=== PATIENT | male | born 1940 | race Caucasian/White ===

== ENCOUNTER 2020-01-23 12:26 | Emergency (ER) | payer MEDICARE, OTHER ==
[~2020-01-23] VITALS: Ht 175.3 cm; Wt 99.8 kg
[~2020-01-23 12:26] MED LIST: ADVIL200 M1 PO; ASPIRIN EC81 MG PO; AZELASTINE137 MCG/0. NAS; DILTIAZEM ER360 MG PO; IPRATROPIUM BRO15 ML NAS; LISINOPRIL20 MG PO; LOVASTATIN40 MG PO; OMEPRAZOLE40 MG PO; PERCOCET 7.5-31 EACH PO; PROAIR HFA8.5 GM INH; QVAR7.3 G1 INH
[2020-01-23] MEDS ORDERED: CLARITIN10 M2 PO (16:14)
[2020-01-23] MEDS ORDERED: TAZTIA XT360 MG PO (16:15)
[2020-01-23] MEDS ORDERED: CHOLESTYRAMINE R5 GM MISC (16:15)
[2020-01-23] MEDS ORDERED: MOBIC15 MG PO (16:16)
--- NOTE | 2020-01-23 20:30 | EKG ---
[facility] [address] [facility] [place], [place] [address] Signed Sinus rhythm with premature supraventricular complexes Left anterior fascicular block Left ventricular hypertrophy with QRS widening Abnormal ECG No previous ECGs available Confirmed by LORENE MORRISON DO ([id number]) on 01/23/2020 8:30:45 PM Electronically Signed By: LORENE MORRISON DO 01/23/20 2030 PATIENT NAME: BEKAHSHANKAR Electrocardiogram DATE OF : 38 PHYSICIAN: LORENE MORRISON DO REPORT #: [id number] REPORT IS CONFIDENTIAL AND NOT TO BE RELEASED WITHOUT AUTHORIZATION
== END 2020-01-23 18:58 | disposition home or self-care (01) ==
LOC: ED 12:26
DX: S46.912A Strain of unspecified muscle, fascia and tendon at shoulder and upper arm level, left arm, initial encounter (principal); X58.XXXA Exposure to other specified factors, initial encounter; Z88.1 Allergy status to other antibiotic agents; Z79.899 Other long term (current) drug therapy
CPT/HCPCS: 71045; 80053; 84484; 85025; 85379; 93005; 93010; 99284-25

== ENCOUNTER 2021-09-23 04:14 | Inpatient (IN) | payer OTHER ==
[~2021-09-23] VITALS: Ht 175.3 cm; Wt 87.7 kg
[~2021-09-23 04:14] MED LIST changes: +CHOLESTYRAMINE R5 GM MISC; +CLARITIN10 M2 PO; +MOBIC15 MG PO; +TAZTIA XT360 MG PO
[2021-09-23] MEDS ORDERED: LIPITOR80 MG PO (04:28)
[2021-09-23] MEDS ORDERED: OMEPRAZOLE20 MG PO (04:29)
[2021-09-23] MEDS ORDERED: ARNUITY ELLIPT50 MCG (04:31)
[2021-09-23] MEDS ORDERED: FLUOCINOLONE AC15 G2 TOP (04:33)
[2021-09-23] MEDS ORDERED: TRIAMCINOLONE A15 G1 TOP (04:34)
[2021-09-23] MEDS ORDERED: VAZALORE81 MG PO (05:19)
[2021-09-23] MEDS ORDERED: DILTIAZEM ER300 M1 PO (05:19)
[2021-09-23] MEDS ORDERED: MELOXICAM15 MG PO (05:20)
[2021-09-23] MEDS ORDERED: CLARITIN10 M2 PO (05:21)
--- NOTE | 2021-09-23 07:30 | NUR ---
REPORT RECEIVED FROM NIGHTSHIFT RN, PT CHECKED ON AT THIST TIME, PT ALERT AND ORIENTED LAYING IN BED, IVF INFUSING AT ORDERED RATE. PT REPORTS FEELING "RUMBLING" IN HIS STOMACH BUT REPORTS NO FURTHER NEEDS AT THIS TIME WHEN ASKED AND DENIES NEEDING TO GO TO THE BATHROOM AT THIS TIME. WILL CONTINUE PLAN OF CARE. CALL LIGHT IN REACH, BED IN LOWEST POSITION.
--- NOTE | 2021-09-23 08:11 | NUR ---
THIS RN IN TO ASSESS PT AND TAKE VITALS. PT LAYING IN BED AT THIS TIME ALERT AND ORIENTED X4. PT DENIES HAVING ANY PAIN OR NAUSEA AT THIST [place] BUT STATES HE FEELS "RUMBLING" IN HIS STOMACH. VITALS TAKEN, PT ASSESSED, BOWEL TONES NOTED TO BE HYPERACTIVE, LUNGS CLEAR. PT DENIES NEEDING TO USE THE RESTROOM AT THIS TIME BUT WILL USE THE CALL LIGHT WHEN HE NEEDS TO. PT IVF INFUSING ORDERED. PT REPORTS NO FURTHER NEEDS AT THIS TIME AND IS RESTING IN BED, CALL LIGHT IN REACH, BED IN LOWEST POSITION, WILL CONTINUE PLAN OF CARE.
--- NOTE | 2021-09-23 09:10 | NUR ---
THIS RN IN TO CHECK ON PT. PT LAYING IN BED ALERT AND ORIENTED, AT THE BEDSIDE. QUESTIONS ANSWERED REGARDING PURPOSE OF LABS. PT REPORTS NO FURTHER NEEDS AT THIS TIME WHEN ASKED, CALL LIGHT IN REACH, BED IN LOWEST POSITION, IVF INFUSING ORDERED, PT'S AT THE BEDSIDE, WILL CONTINUE PLAN OF CARE.
--- NOTE | 2021-09-23 09:45 | NUR ---
DR. COPELAND IN TO SEE PT AND UPDATE PT ON THE PLAN OF CARE. BLOOD CONSENT FORM SIGNED FOR ADMINISTRATION OF BLOOD PRODUCTS, 2 UNITS OF PRBC'S ON HOLD PER LAB. PT REPORTS NO FURTHER NEEDS AT THIS TIME, CLEAR LIQUID TRAY ORDERED FOR PT, WILL CONTINUE PLAN OF CARE.
--- NOTE | 2021-09-23 10:22 | NUR ---
THIS RN IN TO BRING PT HIS CLEAR LIQUID TRAY, PT LAYING IN BED AWAKE AND ALERT. PT STATED HE NEEDED TO HAVE A BM, PT ABLE TO GET UP AND WALK TO THE BATHROOM, STANDBYE ASSIST. PT HAD 100ML CRISTIAN RED BLOOD WITH CLOTS PRESENT FOR HIS BM ALONG WITH 150ML OF CLEAR YELLOW URINE. PT ABLE TO GET BACK UP AND WALK TO THE BED. HR NOTED TO INCREASE WHILE BEING ACTIVE TO THE 110'S. PT DENIES LIGHTHEADEDNESS OR DIZZYNESS WHEN ASKED. PT NOW BACK IN BED SITTING UP AND EATING HIS CLEAR LIQUID TRAY, PT UPDATED ON PLAN OF CARE, DR. COPELAND IN TO CHECK ON PT AND UPDATED ON PT'S BM. PT REPORTS NO FURTHER NEEDS AT THIS TIME WHEN ASKED, PT EATING HIS CLEAR LIQUID TRAY, IVF INFUSING ORDERED, CALL LIGHT IN REACH, WILL CONTINUE PLAN OF CARE.
--- NOTE | 2021-09-23 11:03 | NUR ---
THIS RN IN TO ADMINISTER SCHEDULED MEDICATION. PT LAYING IN BED AWAKE AND ALERT, IVF INFUSING ORDERED, PT FINISHED 100% OF HIS CLEAR LIQUID TRAY. VITALS TAKEN AND SCHEDULED MEDICATION ADMINISTERED. PT DENIES HAVING ANY PAIN AT THIS TIME AND DENIES THE NEED TO USE THE BATHROOM AT THIS TIME. SCD'S PLACED ON PT'S LEGS ORDERED. PT REPORTS NO FURTHER NEEDS, WILL CONTINUE PLAN OF CARE. CALL LIGHT IN REACH.
--- NOTE | 2021-09-23 12:17 | NUR ---
THIS RN IN TO ASSESS PT AND TAKE VITALS. PT LAYING IN BED AT THIS TIME ALERT AND ORIENTED. PT REPORTS 3/10 LEFT SHOULDER PAIN WHICH HE STATES IS CHRONIC. LAB IN TO DRAW BLOOD AT THIS TIME. AFTERWARDS PRN TYLENOL WAS ADMINISTERED FOR HIS PAIN. PT REPORTS NO FURTHER NEEDS AT THIS TIME WHEN ASKED, PT RESTING IN BED, IVF INFUSING ORDERED. PT DENIES ANY LIGHTHEADEDNESS AT THIS TIME AND DENIES THE NEED TO USE THE BATHROOM, WILL CONTINUE PLAN OF CARE. CALL LIGHT IN REACH.
--- NOTE | 2021-09-23 12:38 | NUR ---
RESPONDED TO PT CALL LIGHT, PT LAYING IN BED AWAKE AND ALERT, PT STATED HE NEEDED TO HAVE A BM. BEDSIDE COMMODE USED THIS TIME. PT ABLE TO GET UP WITH MINIMAL ASSISTANCE, HR NOTED TO INCREASE TO THE 100'S, PT DENIED ANY LIGHTHEADEDNESS OR DIZZYNESS WHEN ASKED. PT HAD A CRISTIAN RED BLOOD BM WITH CLOTS PRESENT AT AROUND 25ML WHICH IS NOTED TO BE MORE SOLID THAN THE PRIOR BM. PT ALSO VOIDED 500ML OF CLEAR YELLOW URINE INTO THE URINAL. PT NOW BACK TO BED AND RESTING. PT REPORTS NO FURTHER NEEDS AT THIS TIME WHEN ASKED, IVF INFUSING ORDERED, WILL CONTINUE PLAN OF CARE. CALL LIGHT IN REACH.
--- NOTE | 2021-09-23 13:26 | NUR ---
RESPONDED TO PT CALL LIGHT, PT SITTING UP IN BED AWAKE AND ALERT, PT STATED HE HAD FINISHED HIS LUNCH AND REQUESTED MORE BROTH AND HOT TEA. BROTH AND TEA BROUGHT TO PT AT THIS TIME. PT REPORTS NO FURTHER NEEDS WHEN ASKED. PT SITTING UP IN BED DRINKING HIS TEA, CALL LIGHT IN REACH, WILL CONTINUE PLAN OF CARE.
--- NOTE | 2021-09-23 13:58 | NUR ---
PT ALERT, ORIENTED AND FINISHING UP HIS BROTH AND HOT TEA. PT STATED THAT THIS SHOWED HIM HOW QUICKLY LIFE CAN CHANGE. HE ALSO MENTIONED HOW MUCH HE APPRECIATES THE STAFF. HE SAID THEY LISTEN, ATTENTIVE TO HIS NEEDS AND IS PLEASED WITH HIS CARE. PT GOT EMOTIONAL WHEN HE TALKED ABOUT HOW FRIGHTENED HE WAS WHEN HE NOTICED HE WAS PASSING BLOOD AND IMMEDIATELY SOUGHT HELP. PT REQUESTED PRAYER, WILL CONTINUE TO FOLLOW
--- NOTE | 2021-09-23 14:24 | NUR ---
PATIENT SITTING UP IN BED, STARTING MIRALAX BOWEL PREP. PATIENT RATES SHOULDER PAIN 3/10.
--- NOTE | 2021-09-23 14:41 | NUR ---
PATIENT HAS FINISHED ONE BOTTLE OF BOWEL PREP.
--- NOTE | 2021-09-23 15:06 | NUR ---
Update from Rn. Pt cont. to have slow bleed. Has started prep for colonoscopy tomorrow. Will fu with pt tomorrow.
--- NOTE | 2021-09-23 15:30 | NUR ---
RESPONDED TO PT CALL LIGHT, PT STATED HE NEEDED TO HAVE A BM AND VOID. PT ABLE TO GET UP WITH MINIMAL ASSISTANCE TO THE BEDSIDE COMMODE. PT ABLE TO STAND, PIVOT TO THE COMMODE W/O ASSISTANCE. PT HAD A CLEAR BM WITH A RED TINGE THAT WAS 50ML. PT ALSO VOIDED 750ML OF CLEAR YELLOW URINE INTO THE URINAL. NEW ATTENDS IN PLACE AND NEW PAD PLACED ON BED. PT BACK TO THE BED, PT NOTED TO BE SOB. PT STATED HE FELT "TIRED" FROM THE ACTIVITY BUT DENIED LIGHTHEADEDNESS OR DIZZYNESS, PT HR UP TO THE 90'S WHEN GETTING UP, SPO2 MAINTAINING AT 96%. PT VITALS TAKEN AFTERWARDS AND PT ASSESSED. PT LUNGS CLEAR IN UPPER LOBES, DIMINISHED IN LOWER LEFT, FINE CRACKLES PRESENT IN LOWER RIGHT. PT GIVEN AN I.S AT THIS TIME AND WAS ABLE TO USE IT SUCCESSFULLY. PT ABDOMEN AT THIS TIME IS SOFT, NO PAIN UPON PALPATION, BOWEL TONES HYPERACTIVE IN ALL 4 QUADRANTS. PT REPORTS NO FURTHER NEEDS AND IS RESTING IN BED, IVF INFUSING ORDERED, SCD'S ON, WILL CONTINUE PLAN OF CARE. CALL LIGHT IN REACH.
--- NOTE | 2021-09-23 16:45 | NUR ---
RESPONDED TO PT CALL LIGHT. PT SITTING UP IN BED AWAKE AND ALERT IVF INFUSING ORDERED. PT STATED HE HAD USED THE URINAL BUT HAD ACCIDENTLY GONE AND HAD A SMALL BM IN HIS ATTENDS WHILE VOIDING IN THE BED. PT UP TO THE BEDSIDE, A BLOODY STREAK WAS NOTED ON THE ATTENDS. PT SAT ON THE BEDSIDE COMMODE AFTERWARDS HE FELT HE HAD TO HAVE A BM ONCE HE STOOD. PT HAD BM THAT WAS 600ML OF DARK RED BLOOD. PT REPORTS NO DIZZYNESS OR LIGHTHEADEDNESS. PT ABLE TO DO PERICARE ON HIS OWN, CLEAN ATTENDS PLACED, PT ABLE TO GET BACK INTO THE BED WITHOUT ASSISTANCE. PT HR NOTED TO INC TO 90-100 BUT DECREASED BACK TO THE 70-80'S WITH REST. SPO2 MAINTAINED AT 99%. PT NOW RESTING IN THE BED AND REPORTS NO FURTHER NEEDS, PT USING HIS I.S AT THIS TIME. CALL LIGHT IN REACH, BED IN LOWEST POSITION, WILL CONTINUE PLAN OF CARE.
--- NOTE | 2021-09-23 17:36 | NUR ---
RESPONDED TO PT CALL LIGHT, PT AWAKE AND ALERT SITTING UP IN BED IVF INFUSING ORDERED. PT STATED HE NEEDED TO GET UP TO THE BSC TO HAVE ANOTHER BM. PT ABLE TO GET UP WITHOUT ASSISTANCE AND STAND AND PIVOT TO THE BSC. PT USED THE URINAL AND VOIDED 525 OF CLEAR YELLOW URINE. PT BM WAS 400ML OF RED/BLOOD (LIQUID). PT DENIED LIGHTHEADEDNESS OR DIZZYNESS, NEW ATTENDS IN PLACE. PT ABLE TO GET BACK INTO BED AND IS NOW RESTING. SCD'S IN PLACE, IVF INFUSING ORDERED. PT REPORTS NO NEEDS AND IS IN NO APPAREND DISTRESS, WILL CONTINUE PLAN OF CARE, CALL LIGHT IN REACH, BED IN LOWEST POSITION, PTS IN THE ROOM AT THE BEDSIDE.
--- NOTE | 2021-09-23 18:11 | NUR ---
DR. CAMPOS IN PT'S ROOM TO ASSESS PT, UPDATE ON PLAN OF CARE, AND DISCUSS COLONOSCOPY. PT QUESTIONS ANSWERED BY DR. CAMPOS, PLANS FOR THE COLONOSCOPY ARE TOMORROW. PT REPORTS NO FURTHER NEEDS A THIS TIME, WILL CONTINUE PLAN OF CARE. DR. CAMPOS UPDATED ON PT'S BM'S AFTERWARDS AND PLANS FOR ANOTHER LAB DRAW, WILL CONTINUE PLAN OF CARE.
--- NOTE | 2021-09-23 18:24 | NUR ---
THIS RN IN TO BRING PT HIS CLEAR TRAY (DINNER). PT SITTING UP IN BED AWAKE AND ALERT, IVF INFUSING ORDERED. PT REPORTS NO NEEDS AT THIS TIME AND AND IS NOW EATING HIS CLEAR LIQUID TRAY. CALL LIGHT IN REACH, BED IN LOWEST POSITION, IVF INFUSING, PT'S IN ROOM AT THE BEDSIDE, WILL CONTINUE PLAN OF CARE.
--- NOTE | 2021-09-23 18:49 | NUR ---
THIS RN IN TO CHECK ON PT AND HAVE CONSENT FORM FOR COLONOSCOPY SIGNED. PT AWAKE AND ALERT SITTING UP IN BED AND HAD JUST FINISHED HIS CLEAR LIQUID TRAY FOR DINNER. CONSENT SIGNED AT THIS TIME FOR COLONOSCOPY. PT STATED HE NEEDED TO HAVE A BM AT THIST TIME. PT ABLE TO GET UP FROM THE BED AT THIS TIME WITHOUT ASSISTANCE AND PIVOTED TO THE BSC. PT USED TO URINAL TO VOID 900ML OF CLEAR DILUTE URINE. PT BM WAS 500ML OF DARK RED BLOOD/LIQUID WHICH WAS NOTED TO BE LESS VISCOUS THAN PRIOR ONES. PT DENIES LIGHTHEADEDNESS OR DIZZYNES AND WAS ABLE TO GET BACK INTO BED WITHOUT ASSISTANCE. PT NOW RESTING IN BED AND REPORTS NO FURTHER NEEDS. CALL LIGHT IN REACH, BED IN LOWEST POSITION, PT'S IN ROOM AT THE BEDSIDE, WILL CONTINUE PLAN OF CARE.
--- NOTE | 2021-09-23 18:56 | NUR ---
DR. COPELAND UPDATED ON PT'S CONDITION ALONG WITH HIS BM'S/OUTPUT AND INFORMED OF THE RESULTS OF THE LATEST HGB WHICH WAS 11.2. WILL CONTINUE PLAN OF CARE.
--- NOTE | 2021-09-23 19:40 | NUR ---
IN ROOM TO ASSIST PT TO BATHROOM. PT HAD 1000 MLS OF LIQUID DARK BLOODY STOOL. INCREASED PVCS NOTED WITH AMBULATION. PT DENIES DIZZINESS, PAIN, OR NAUSEA. ASSESSMENT COMPLETED. PLAN OF CARE FOR EVENING ESTABLISHED. ALL QUESTIONS ANSWERED. PT DENIES FURTHER NEEDS AT THIS TIME.
--- NOTE | 2021-09-23 21:45 | NUR ---
PT UP TO BATHROOM AND BACK IN BED. STOOLS LOOKING LESS RED THAN LAST BOWEL MOVEMENT. IV FLUIDS INFUSING. DENIES FURTHER NEEDS AT THIS TIME.
--- NOTE | 2021-09-24 | NUR ---
ASSESSMENT COMPLETED. PT EDUCATION PROVIDED ABOUT BEING NPO FOR SURGICAL PROCEDURE TOMORROW. PT DENIES PAIN, NAUSEA, OR DISCOMFORT. CALL LIGHT WITHIN REACH. WILL CONTINUE TO MONITOR.
--- NOTE | 2021-09-24 | NUR ---
ASSESSMENT COMPLETED. PT DEINES PAIN OR DISCOMFORT. CALL LIGHT WITHIN REACH. WILL CONTINUE TO MONITOR.
--- NOTE | 2021-09-24 02:15 | NUR ---
PT ASLEEP. BREATHING EVEN AND UNLABORED. HEART RATE IN THE 70S AT REST. CALL LIGHT AND PERSONAL BELONGINGS WITHIN REACH. NO ASSESSED NEEDS AT THIS TIME.
--- NOTE | 2021-09-24 02:30 | NUR ---
PT RESTIN. HEART RATE IN THE 80S AT REST. RR EVEN AND UNLABORED. CALL LIGHT WITHIN REACH. NO ASSESSED NEEDS AT THIS TIME.
--- NOTE | 2021-09-24 03:12 | NUR ---
PT UP TO USE URINAL. ASSESSMENT COMPLETED. PT DENIES PAIN OR DISCOMFORT. STEADY ON FEET. NO DIZZINESS. HR WNL WITH STANDING, OCCASIONAL PVCS NOTED. NEW BAG OF IV FLUIDS HUNG AND IS INFUSING. CALL LIGHT WITHIN REACH. NO FURTHER NEEDS.
--- NOTE | 2021-09-24 05:20 | NUR ---
[facility] [employer] IN ROOM AT THIS TIME TO DRAW BLOOD.
--- NOTE | 2021-09-24 07:30 | NUR ---
PATIENT REPORT RECIEVED FROM REZA MAN. PATIENT IS RESTING IN BED. BREATHING IS EQUAL AND UNLABORED. CALL LIGHT WITHIN REACH NO FUTHER NEEDS.
--- NOTE | 2021-09-24 07:42 | EKG ---
[facility] [address] [facility] [place] [address] Signed Normal sinus rhythm Left anterior fascicular block Abnormal ECG When compared with ECG of 23-JAN-2020 17:07, premature supraventricular complexes are no longer present Confirmed by RUBEN COPELAND MD ([id number]) on 09/24/2021 7:42:38 AM Electronically Signed By: RUBEN COPELAND MD 09/24/21 0742 PATIENT NAME: BEKAHSHANKAR TIFFANY Electrocardiogram DATE OF : 38 PHYSICIAN: RUBEN COPELAND MD REPORT #: [id number] REPORT IS CONFIDENTIAL AND NOT TO BE RELEASED WITHOUT AUTHORIZATION
--- NOTE | 2021-09-24 08:24 | NUR ---
PATIENT ASSESSMENT COMPLETE. MORNING MEDICATIONS GIVEN ORDERED. PATIENT IS ALERT AND ORIENTED X4. PATIENT HAS NOT HAD ANY STOOLS THIS MORNING AND NO URINE OUTPUT. PATIENT LUNG SOUNDS ARE CLEAR AND PATIENT IS ON ROOM AIR. PATIENT IS SINUS RYTHM WITH A FEW PVC'S. PATIENT HAS BEEN NPO SINCE MIDNIGHT. OR TEAM EXPECTED TO BE HERE AT 0900 FOR SCOPE. PATIENT UNDERSTANDS THE PROCEDURE AND HAS SIGNED CONSENT FORM. PRE PROCEDURE CHECKLIST COMPLETE. CHART READY. PATIENT HAS BEEN UPDATED ON PLAN OF CARE. NO QUESTIONS AT THIS TIME. CALL LIGHT WITHIN REACH NO FUTHER NEEDS.
--- NOTE | 2021-09-24 09:15 | NUR ---
TO OR VIA STRETCHER FOR COLONOSCOPY.
--- NOTE | 2021-09-24 10:25 | NUR ---
09/24/21 1025 Charity Lopez 1014 PT ARRIVED IN PACU SLEEPY WITH NO C/O'S. ABD SOFT AND LAYING ON L SIDE. 1025 REPOSITONED TO BACK AND SITTING UP IN BED. NO C/O'S.
--- NOTE | 2021-09-24 10:50 | NUR ---
RETURNED TO ROOM 126. REPORT FROM DRY CLEANING MACHINE OPERATOR RECIEVED. PATIENT AMBULATED FROM STRETCHER TO BED. IS STEADY ON FEET. TRANSFER ORDERS RECIEVED. PATIENT IS IN ROOM. IVF INFUSING AT 125 ML/HR. BOTH IV SITES IRRIGATE FREELY WITH 5 ML NORMAL SALINE. WILL ORDERS PATIENT HIGH-FIBER LUNCH. PATIENT DENIES PAIN OR NAUSEA.
--- NOTE | 2021-09-24 11:30 | NUR ---
PATIENT ASSESSMENT COMPLETE. PATIENT IS BACK FROM SCOPE. PATIENT DENIES FEELING PAIN. ALERT AND ORIENTED X4. LUNG SOUNDS ARE CLEAR THROUGHOUT. DENIES FEELING SHORT OF BREATH. RR IS 18-25. PATIENT ABLE TO VOID. CLEAR YELLOW URINE. PATIENT CMST INTACT. TRACE EDEMA IN THE LOWER EXTERMITIES. PATIENT IS IN SINUS RYTHM WITH PVC'S OCCASIONALLY. PATIENT HAS NOT HAD ANY BLOODY STOOLS. ABDOMEN IS SOFT AND DENIES ANY PAIN. BOWEL SOUNDS ARE ACTIVE. PRESENT IN ROOM. UPDATED ON PLAN OF CARE. CALL LIGHT WITHIN REACH NO FUTHER NEEDS.
--- NOTE | 2021-09-24 12:55 | NUR ---
PATIENT REPORT GIVEN TO REZA JIMENEZ. PATIENT TRANSFERED BY BED TO MEDICAL SURGICAL FLOOR ROOM 107. PATIENT BREATHING WAS EQUAL AND UNLABORED. PATIENT TOLERATED MOVE WELL.
--- NOTE | 2021-09-24 13:00 | NUR ---
Patient to medical floor from CCU. Patient alert and oriented. Patient denies sob or distress. Personal supplies and call light within reach.
--- NOTE | 2021-09-24 14:44 | OR ---
[facility] [address] [place], [place] [address] Signed DATE OF OPERATION: 09/24/2021 SURGEON: Rodríguez Campos MD PREOPERATIVE DIAGNOSES: 1. Recent hematochezia, bright red blood per rectum. 2. No evidence of hematemesis or upper abdominal symptoms. POSTOPERATIVE DIAGNOSES: 1. Extensive sigmoid and left-sided diverticulosis, no active bleeding. 2. Internal hemorrhoids. PROCEDURE: Total colonoscopy to cecum. ANESTHESIA: Intravenous sedation, propofol infusion, Rosalina Winslow CRNA. INDICATION: This 81-year-old white man is a patient of Dr. Carl Ayala. He was admitted by Dr. Maier upon presentation yesterday for significant recurring bright red rectal bleeding, which was painless. He has been monitored in the hospital and found to have persistent bleeding though it has discontinued overnight. He has undergone a full bowel prep. Preoperative antibiotic Ancef was given, anticipating colonoscopy today upon the request of Dr. Maier physician. The patient has had no upper gastrointestinal symptoms specifically no hematemesis, epigastric pain, or other issues and although, he is known to have reflux disease in the past, it is thought unlikely his bright red rectal bleeding is related to an upper gastrointestinal source. His hematocrit has drifted late yesterday to 30. He has tolerated bowel prep well having no current bleeding at this time. FINDINGS: The prep was good. Complete colonoscopy was undertaken to the cecum without question. He has extensive diverticular disease of the sigmoid and left colon, none of which were actively bleeding. There was no sign of fresh or old blood within the colon on this examination. He did have internal hemorrhoids. No evidence of fissure. The more proximal colon showed no evidence of other abnormality. He specifically had no colitis, ischemic colitis, or other lesions. Electronically Signed By: RODRÍGUEZ CAMPOS MD 09/24/21 1444 PATIENT NAME: SHANKAR GODFREY OPERATIVE REPORT DATE OF : 38 REPORT #: [id number] PHYSICIAN: RODRÍGUEZ CAMPOS MD PCP: CARL AYALA MD REPORT IS CONFIDENTIAL AND NOT TO BE RELEASED WITHOUT AUTHORIZATION [facility] [address] [place], [place] [address] Signed DESCRIPTION OF PROCEDURE: The patient was brought to the surgical endoscopy suite and placed in lateral decubitus position, given intravenous sedation with propofol infusional technique by the gis specialist based on his advanced ASA classification of IIIE. Preoperative antibiotic Ancef was given. Sequential compression device stockings had been in place. After satisfactory sedation, an Olympus video colonoscope was passed in the rectum and manipulated throughout the colon noting immediately extensive diverticular changes in the sigmoid and left colon. There was no evidence of fresh blood, clots or bright blood in any way. The scope was ultimately advanced to the cecum. Ileocecal valve and appendiceal orifice were normal. Scope was withdrawn from that point. There was no sign of blood in the more proximal colon and only scattered diverticula throughout. Once the left colon was once again attained, more numerous diverticular changes were noted including most densely in the sigmoid. Again, there was no sign of active bleeding associated with any of the diverticula, no sign of colitis, no sign of cancer. Retroflexed view did confirm internal hemorrhoidal changes. There was no sign of active bleeding. External examination manually undertaken showed no evidence of fissure. The patient was then taken to recovery room in good condition having suffered no complication. CONCLUDING DIAGNOSIS: Most likely, his bleeding has been related to advanced sigmoid and left-sided diverticulosis, now resolved. The possibility of internal hemorrhoidal bleeding is considered, though it is less likely as the hemorrhoids certainly did not appear to be acutely inflamed or recently having had bleeding. PLAN: He will return to the ongoing care of Dr. Maier. Likely to advance diet ultimately, a high-fiber diet would be appropriate. MD LATRICE Segovia/DEJAL /[id number] cc: Ruben Maier MD Electronically Signed By: RODRÍGUEZ CAMPOS MD 09/24/21 1444 PATIENT NAME: SHANKAR GODFREY OPERATIVE REPORT DATE OF : 38 REPORT #: [id number] PHYSICIAN: RODRÍGUEZ CAMPOS MD PCP: CARL AYALA MD REPORT IS CONFIDENTIAL AND NOT TO BE RELEASED WITHOUT AUTHORIZATION [facility] [address] [facility] [place], [place] [address] Signed Carl Ayala MD Copies: RUBEN MAIER MD, TIMOTHY MD ~ Electronically Signed By: RODRÍGUEZ CAMPOS MD 09/24/21 1444 PATIENT NAME: SHANKAR GODFREY OPERATIVE REPORT DATE OF : 38 REPORT #: [id number] PHYSICIAN: RODRÍGUEZ CAMPOS MD PCP: CARL AYALA MD REPORT IS CONFIDENTIAL AND NOT TO BE RELEASED WITHOUT AUTHORIZATION
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
--- NOTE | 2021-09-24 16:51 | NUR ---
STOPPED BY TO GIVE PATIENT DIET EDUCATION ON A HIGH-FIBER DIET. HIS IS PRESENT. HE STATES HE HAS BEEN FOCUSING ON EATING LOWER FAT FOODS DUE TO HAVING HIGH CHOLESTEROL AND A HEART ATTACK ABOUT 1.5 YEARS AGO. HE ASKED QUITE A BIT OF QUESTIONS ABOUT FOODS FOR HEART HEALTH WHICH I WAS HAPPY TO ANSWER. THEN I EXPLAINED THE HIGH-FIBER GUIDELINES FOR HIM TO AIM FOR 25-35 GRAMS OF FIBER DAILY. HE SHOULD SPREAD OUT HIS FIBER INTAKE THROUGHOUT THE DAY. HE SAID HE WILL WORK ON DRINKING MORE WATER, TOO. HANDOUT WITH FOODS WITH 4 GRAMS OR MORE OF FIBER AND FOODS WITH 1 TO 3 GRAMS OF FIBER PROVIDED. I GAVE HIM A FEW OTHER TIPS ON HOW TO SWAP SOME FOODS HE IS ALREADY EATING TO HIGHER FIBER VERSIONS. HE AND HIS APPRECIATED MY TIME. HE PLANS TO GO HOME TOMORROW. MY NAME AND OFFICE # PROVIDED IN CASE HE HAS MORE QUESTIONS IN THE FUTURE.
--- NOTE | 2021-09-24 18:23 | NUR ---
PATIENT IN BED RESTING AT THIS TIME. VITALS AND I&O'S CHARTED. CALL LIGHT IN REACH. NO FURTHER NEEDS AT THIS TIME.
--- NOTE | 2021-09-24 19:30 | NUR ---
REPORT RECEIVED FROM DAY SHIFT RN. PT LYING IN BED ALERT AND ORIENTED. DENIES NEEDS. WHITE BOARD UPDATED. CALL LIGHT IN REACH.
--- NOTE | 2021-09-24 20:45 | NUR ---
PT UP TO BATHROOM NEAR 2009. VOIDED AND HAD UNMEASURED RED LIQUID, WATERY LIKE IN TOLIET BOWL, WELL SPLATTER ON TOILET SEAT AND UPPER BOWL AREA. PT CONCERNED, DENIED PAIN, DENIED DIZZINESS. NOTIFIED DR CAMPOS AT THIS TIME. NO NEW ORDERS AT THIS TIME.
--- NOTE | 2021-09-24 21:27 | NUR ---
PT UP TO BR WITH SBA TO HAVE BM. NOTED 600-700 ML BRIGHT RED BLOOD IN HAT WITH SOME SOLIDS. PT REPORTS FEELING DIZZY AND NAUSEATED. PT APPEARS PALE IN COLOR. NOTED ON TELE MONITOR PT IN AFIB. HR 120'S-130'S. BACK TO BED. PT REPORTS DIZZINESS SUBSIDED. VS OBTAINED, WNL. HR BACK TO 80'S-90'S NSR. DR. COPELAND ON FLOOR AND UPDATED. DR. CAMPOS CALLED AND PROVIDED UPDATE. TELEPHONE ORDERS RECEIVED VERIFIED WITH READ BACK METHOD.
--- NOTE | 2021-09-24 21:45 | NUR ---
EVENING ASSESSMENT COMPLETE. SCHEDULED MEDS ADMINISTERED PER EMAR. PRN FOR NAUSEA ADMINISTERED. PT REPORTS INTERMITTENT LIGHTHEADEDNESS, DIZZINESS, AND LOWER ABD "GAS" TYPE PAIN. ABD SOFT. BOWEL TONES ACTIVE. HR REGULAR AT THIS TIME. RATE 90'S-100'S. SpO2 100% ON RA. IVF INFUSING WNL. NO FURTHER NEEDS. CALL LIGHT IN REACH.
--- NOTE | 2021-09-24 22:18 | NUR ---
LAB TO ROOM TO DRAW STAT CBC. PT DIFFICULT DRAW AND REQUIRED MULTIPLE POKES. BLOOD TO LAB. PT REPORTS FEELING ANXIOUS, LIGHTHEADED, DIZZY, WITH WAVES OF NAUSEA. REASSURANCE PROVIDED. TELE IN PLACE. SR. HR IN THE LOW 100'S. SpO2 100% ON RA. NO FURTHER NEEDS AT THIS TIME. BED ALARM FOR SAFETY. CALL LIGHT IN REACH.
--- NOTE | 2021-09-24 23:12 | NUR ---
DR. COPELAND AND DR. CAMPOS UPDATED ON CBC RESULTS AND PT STATUS. ORDERS RECEIVED TO TX PT TO CCU.
--- NOTE | 2021-09-24 23:21 | NUR ---
RESPONDED TO CODE BLUE IN ROOM 107. PT UP ON BSC, NON RESPONSIV. RN ROLAND Hoffman AND GEOVANY Lindsay HOLDING UP PT. PUT PT BACK TO BED SPO2 =90% ON ROOM AIR PLACED ON 6 L NC. COLOR PALE, PT RESPONSIVE ONCE PLACED BACK IN BED. HEART RATE 100-140 WITH AN IRREGULAR RHYTHM. ASSOCIATE SOFTWARE DEVELOPER IN ROOM. PT TRANSPORTED TO CCU AT THIS TIME. FLOAT RN VICTOR M TO LAB TO GET UNIT OF BLOOD, RESPIRAYTORY THERAPY, THIS RN AND ASSOCIATE SOFTWARE DEVELOPER AT BEDSIDE. 1 L BOLUS OF LACTATED RINGERS INFUSING. DR COPELAND AT BEDSIDE AT 2330. VERBAL ODRE TO INFUSE 2 UNITS OF BLOOD. PT BECOMING MORE ALERT AND ORIENTED. HEART RATE IN THE 90S. BLOOD PRESSURES 110-120 SYSTOLICALLY. CALLED AT THIS TIME BY DR COPELAND FOR AN UPDATE. THIS RN, ASSOCIATE SOFTWARE DEVELOPER, AND DR COPELAND REMAIN AT PT BEDSIDE.
--- NOTE | 2021-09-24 23:30 | NUR ---
VERIFIED BLOOD WITH DONOVAN COBB. PLACED LR ON STRAIGHT TUBING AND IS INFUSING IN PATIENTS LEFT WRIST.
--- NOTE | 2021-09-24 23:55 | NUR ---
2315 CALL LIGHT ANSWERED. PT UP TO BSC TO HAVE LARGE LIQUID BRIGHT RED BLOOD BM. TWO RN IN ROOM. PT LOSS CONCIOUSNESS FOR SEVERAL MINUTES. HR NOT PALPATED. MICHELLE COOPER CALLED FOR ASSIST. PT TRANSFERRED BACK TO BED AND REGAINED CONCIOUSNESS AND BEGAN SPEAKING TO STAFF. DR. COPELAND TO FLOOR AT 2325 STATES TO INFUSE TWO UNITS PRBC'S. PT TRANSFERRED TO CCU APPROXIMATELY 2335.
--- NOTE | 2021-09-25 00:15 | NUR ---
FIRST UNIT OF BLOOD FINISHED INFUSING. AND SPIRITUAL CARE AT BEDSIDE WITH PT. THIS RN REMAINS IN ROOM. PT STATES HE IS 'FEELING BETTER" DENIES PAIN, DIZZINESS, SHORTNESS OF BREATH OR ANY OTHER SYMPTOMS. PT SPO2 = 100% ON 4 L NC. PT HEART RATE 80-90 IN SINUS RHYTHM. PVCS NOTED. EKG COMPLETED
--- NOTE | 2021-09-25 00:25 | NUR ---
WATCH, HEARING AIDS, CELL PHONE AND SLIPPERS GIVEN TO CCUDONOVAN.
--- NOTE | 2021-09-25 00:25 | NUR ---
2nd UNIT PRBC'S SIGNED OUT FROM LAB. BROUGHT OVER TO CCU PATIENT ENROUTE TO OR, VERIFIED UNIT WITH FAMILY ENGAGEMENT SPECIALIST'S ANNI, THEY WILL ADMINISTER UNIT.
--- NOTE | 2021-09-25 00:30 | NUR ---
REPORT GIVEN TO SURGERY RNS PT TRANSPORTED BY RN'S MATTY FROM CCU TO [facility] VIA STETCHER. TECHNICAL SALES MANAGER IN PLACE. SPIRITUAL CARE REMAINS AT BEDSIDE WITH PT AT THIS TIME.
--- NOTE | 2021-09-25 00:51 | NUR ---
Notified by switchboard that code was in progress. Code had been resolved by the time I arrived. had arrived and was at bedside. Both and pt were displaying appropriate signs of concenr and seemed to understand situation and prognosis. I exercised ministry of presence, and offered prayer for healing and comfort. Stayed with as nonanxious presence until her nerves had calmed.
--- NOTE | 2021-09-25 02:08 | NUR ---
09/25/21 0208 Lozano,Linda Nuno 0150: PATIENT TRANSFERRED BACK TO CCU ROOM. CARE RESUMED BY CCU RN.
--- NOTE | 2021-09-25 02:08 | NUR ---
PATIENT RETURNED TO THE FLOOR VIA HOSPITAL BED @ 0150. PATIENT IS ON 4L VIA NC. PATIENT TITRATED DOWN TO 3L VIA NC. PATIENT AWAKENS WHEN NAME IS SPOKEN. PATIENT IS DROWSY BUT AWAKENS EASILY. IV FLUIDS INFUSING PER ORDER. PATIENTS VITALS RECORDED. PATIENT DENIES ANY PAIN OR NAUSEA. PATIENTS REMAINS AT BEDSIDE. NO NEEDS NOTED.
--- NOTE | 2021-09-25 03:10 | NUR ---
VERBAL ORDER FROM DR COPELAND TO INFUSE 2 UNITS OF FFP AND TO DRAW MORNING LABS AT 0400. FIRST UNIT OF PLATLETS BEGAN INFUSING AT 75 MLS/HR. INCREASED TO 200 ML/HRS AFTER FIRST 15 MINUTES. NO SIGNS OF TRANSFUSION REACTION. PT MAINTAINING PXYGEN SATURATIONS AT 99% ON ROOM AIR. DISCUSSED PLAN OF CARE WITH PT. PT REMAINS VISIBLE FROM NURSES STATION. WILL CONTINUE TO CLOSELY MONITOR.
--- NOTE | 2021-09-25 03:38 | NUR ---
FIRST UNIT OF FFP CONTINUES TO INFUSE AT THIS TIME. RATE INCREASED TO 300 MLS/HR. PT RESTING ON LEFT SIDE. BREATHING EVEN AND UNLABORED. RR = 20. SPO2 = 96% ON ROOM AIR. WILL CONTINUE TO MONITOR.
--- NOTE | 2021-09-25 04:27 | NUR ---
NEW IV STARTED, BLOOD DRAWN AND SENT TO LAB OFF IV START. WELL TOLERATED BY PT.
--- NOTE | 2021-09-25 05:06 | NUR ---
SECOND UNIT OF PLASMA INFUSING AT THIS TIME.
--- NOTE | 2021-09-25 05:11 | NUR ---
DR COPELAND UPDATED ON PT LABS. NO NEW ORDERS AT THIS TIME.
--- NOTE | 2021-09-25 06:26 | NUR ---
SECOND UNIT OF PLASMA FINISHED INFUSING. PT HEART RATE IN THE 80S. BLOOD PRESSURE WNL. CALL LIGHT WITHIN REACH. IV FLUIDS INFUSING. NO FURTHER NEEDS AT THIS TIME.
--- NOTE | 2021-09-25 07:30 | NUR ---
PATIENT REPORT RECIEVED FROM REZA MAN. PATIENT IS RESTING IN BED. DR. COPELAND IN ROOM ANSWERING QUESTIONS. BED REST FOR PATIENT. PATIENT UPDATED ON PLAN OF CARE. WILL CONTINUE TO MONITOR FOR SIGNS OF BLEEDING. CALL LIGHT WITHIN REACH NO FUTHER NEEDS.
--- NOTE | 2021-09-25 08:15 | NUR ---
PATIENT ASSESSMENT COMPLETE. MEDICATIONS GIVEN ORDERED. PATIENT HAS NOT HAD ANY BLOOD STOOLS THIS MORNING. DENIES ANY PAIN OR ABDOMEN TENDERNESS. PATIENT BOWEL SOUNDS ARE ACTIVE. DENIES NASUEA. PATIENT IS ANXIOUS ABOUT BLEEDING. EDUCATED ON S/S. PATIENT IS ALERT AND ORIENTED X4. LUNG SOUNDS ARE CLEAR AND OXYGEN SATUARTIONS ARE WNL ROOM AIR. PATIENT HEART RATE IS IN SINUS RYTHM. CMST INTACT. PATIENT HAS A BRUISE ON HIS RIGHT FOREARM. GERNERALIZED WEAKNESS THROUGHOUT. URINE IS YELLOW AND CLEAR. PATIENT IS NPO WITH SIPS OF WATER PER MD ORDER. BED REST. UPDATED ON PLAN OF CARE. NO QUESTIONS. CALL LIGHT WITHIN REACH NO FUTHER NEEDS.
--- NOTE | 2021-09-25 08:15 | NUR ---
PATIENT AWAKE IN BED, TEETH BRUSHED AND FACE WASHED. RN TONYA AT BEDSIDE.
--- NOTE | 2021-09-25 11:47 | NUR ---
PATIENT ASSESSMENT COMPLETE. PATIENT IS ANXIOUS ABOUT GI BLEED. PATIENT REASSURED ABOUT CARES AND HOSPITAL STAY. ALERT AND ORIENTED X4. LUNG SOUNDS ARE CLEAR THROUGHOUT AND IS ON ROOM AIR. BREATHING IS EQUAL AND UNLABORED. DENIES FEELING SHORTNESS OF BREATH. PATIENT COMPLAINS OF 6/10 PAIN IN THE HEAD AND NECK. PRN TYLENOL GIVEN. PATIENT IN SINUS RYTHM. URINE OUTPUT IS CLEAR AND YELLOW. NO BLOODY STOOLS AT THIS TIME. PATIENT IS ON BED REST AND ONLY SIPS OF WATER PER MD. PATIENT UPDATED ON PLAN OF CARE. PRESENT IN THE ROOM. CALL LIGHT WITHIN REACH NO FUTHER NEEDS.
--- NOTE | 2021-09-25 13:08 | NUR ---
PT ALERT, ORIENTED AND SEEMS PLEASED I STOPPED BY. PT SHARED HOW LAST DAY AND NIGHT HAVE BEEN DIFFICULT. PT SAID HE PASSED OUT ON BSC, MICHELLE COOPER CALLED FOR HELP. PT GETS EMOTIONAL TALKING ABOUT IT-HE NEEDS TO RELEASE. PT FEARS HE WILL HAVE SOMETHING REALLY WRONG AND WILL HAVE TO HAVE MAJOR SURGERY. ENCOURAGED PT TO FOCUS ON WHAT HE CAN CONTROL. SHARED PRAYER OF SERENITY WITH PT, THEN HAD PRAYER WITH HIM. GAVE COMFORT AND SUPPORT. PT SAID HIS HAS BEEN BY. GAVE BLESSING. PT MENTIONED HE HASN'T BEEN TO [place] IN A LONG TIME, REMINDED HIM GOD HASN'T LEFT HIM. WILL CONTINUE TO FOLLOW
--- NOTE | 2021-09-25 14:30 | NUR ---
PATIENT AWAKE IN BED. VITALS CHARTED AND URINAL EMPTIED. CALL LIGHT AND PERSONAL ITEMS IN REACH.
--- NOTE | 2021-09-25 16:00 | NUR ---
PATIENT ASSESSMENT COMPLETE. PATIENT HAS NOT HAD ANY BLOODY STOOLS. DENIES FEELING ABDOMINAL PAIN AND BOWEL TONES ARE ACTIVE. PATIENT IS BED REST AND NPO. ALERT AND ORIENTED X4. LUNG SOUNDS ARE CLEAR THROUGHOUT AND ON ROOM AIR. BREATHING IS EQUAL AND UNLABORED. DENIES FEELING SHORT OF BREATH. HEART RATE IS IN SINUS RYTHM. URINE IS YELLOW AND CLEAR. UPDATED ON PLAN OF CARE. NO QUESTIONS. CALL LIGHT WITHIN REACH NO FUTHER NEEDS.
--- NOTE | 2021-09-25 17:00 | NUR ---
RESTING WITH EYES CLOSED. WILL CHECK BACK TOMORROW.
--- NOTE | 2021-09-25 20:05 | NUR ---
RECEIVED REPORT FROM DAY SHIFT RN. PATIENT IS RESTING IN BED WATCHING TV. PATIENTS IS AT BEDSIDE. PATIENT CHAPARRITA ANY NEEDS AT THIS TIME.
--- NOTE | 2021-09-25 21:34 | NUR ---
PATIENT ASSESMENT COMPLETED. PATIENTS BOWEL TOONES ARE ACTIVE. PATIENT DENIES ANY ABD PAIN OR DISCOMFORT. PATIENT DOES REPORT PASSING GAS. PATIENT HAS TRACE EDEMA IN HIS BILA LOW EXT. PATIENT HAS GENERALIZED EDEMA IN HIS BILAT HANDS AND PATIENT STATED "THAT IS NORMAL WHRN I AM NOT UP AND AROUND". PATIENT GIVEN SHCEULED MEDICATION PER ORDER. IV INFUSING PER ORDER. PATIENT REPORTS 2/10 PAIN IN HIS LEFT SHOULD THAT IS CHRONIC FOR HIM. PATIENT GIVEN PRN TYLENOL PER ORDER. PATIENT IS ON RA AND DENIES ANY SOB. PATIENTS IVS X2 ON L WRIST AND FOREARM ARE SL AND FLUSH WELL. PATIENT DENIES ANY FURTHER NEEDS. CALL LIGHT IN REACH. PATIENTS IS LEAVING FOR THE EVENING.
--- NOTE | 2021-09-25 22:45 | NUR ---
PATIENT IS RESTING IN BED WITH EYES CLOSED, RR 19 OXYGEN SATURATION 97% ON RA. HR 78. PATIENT APPEARS TO BE IN NO DISTRESS.
--- NOTE | 2021-09-25 23:56 | NUR ---
PATIENT ASSESMENT COMPLETED. PATIENT DENIES ANY PAIN AT THIS TIME. PATIENTS VITALS TECORDED. PATIENTS URINAL EMPTIED. PATIENT DENIES ANY NEEDS. IV INFUSING PER ORDER.
--- NOTE | 2021-09-26 02:13 | NUR ---
PATIENT IS RESTING IN BED WITH EYES CLSOED, RR 16 AND HR 79. PATIENT APPEARS TO BE IN NO DISTRES.
--- NOTE | 2021-09-26 03:00 | NUR ---
PATIENTS URINAL EMPTIED. PATIENT REPORTS 4/10 PAIN IN HIS LEFT SHOULDER. PATIENT GIVEN PRN TYLENOL PER ORDER. PATIENT DENIE ANY FURTHER NEEDS.
--- NOTE | 2021-09-26 04:15 | NUR ---
PATIENT IS RESTING IN BED WITH EYES CLOSED, RR18 AND OXYGEN SATURATION IS 99% ON RA. HR IS 72. PATIENT APPEARS TO BE IN NO DISTRESS.
--- NOTE | 2021-09-26 06:18 | NUR ---
PATIENTS BLOOD DRAWN AND SENT TO LAB. PATIENT RATES SHOULDER PAIN AT A 1/10. PATIENT DENIES THE NEED FOR ANY TYLENOL AT THIS TIME. VITALS RECORDED. URINAL EMPTIED. PATIENT IS PASSING GAS. PATIENT DENIES ANY NEEDS AT THIS TIME. CALL LIGHT IN REACH.
--- NOTE | 2021-09-26 07:45 | NUR ---
Report received from material handler 1st shift. Patient sleeping currently.
--- NOTE | 2021-09-26 08:23 | NUR ---
VITALS CHARTED. FACE AND HANDS WASHED. URINAL EMPTIED. PATIENT AWAKW IN BED, WATCHING TV
--- NOTE | 2021-09-26 08:37 | NUR ---
Alert and oriented. Telling me the entire story of why he is here. In bed with HOB up at 40 degrees.
--- NOTE | 2021-09-26 09:45 | NUR ---
DR Kyle in to see patient. Discussing case with DR Musa and myself. Patient in room now.
--- NOTE | 2021-09-26 11:00 | NUR ---
PATIENT AMBULATING ESTRADA WITH REZA HALE BACK TO ROOM. UP TO CHAIR, IN ROOM. LINENS CHANGED. CALL LIGHT AND PERSONAL ITEMS IN EASY REACH
--- NOTE | 2021-09-26 11:11 | NUR ---
Up walking in the hallway. States no dizzyness or lightheadedness. Now back to room and sittin up in chair. DR Musa in to see patient.
--- NOTE | 2021-09-26 12:20 | NUR ---
REPORT RECEIVED FROM CCU RN AND PT. ARRIVED VIA AMBULATION WITH PAYROLL PROCESSOR. PT. IS ALERT AND ORIENTED.
--- NOTE | 2021-09-26 13:30 | NUR ---
PT. DENIES PAIN AT THIS TIME. IS AT BEDSIDE. BOWEL TONES ACTIVE AND PT. STATES ABDOMEN IS NORMAL. LUNGS CLEAR THROUGHOUT AND REGULAR HEART SOUNDS. TRACE EDEMA PRESENT BLE. DISCUSSED SAFETY, AMBULATION AND MEDS. IV SITES WNL. PT. LEFT RESTING WITH CALL LIGHT IN REACH.
--- NOTE | 2021-09-26 14:09 | NUR ---
PT'S CONDITION IMPROVED ENOUGH TO MOVE TO M/S. HE IS SITTING UP IN CHAIR, MUCH MORE ALERT AND ORIENTED TODAY. RUPINDER IS BY HIS SIDE. SEEMS MORE COMPOSED TODAY. THANKED ME FOR COMING AND HOPES TO DC TOMORRROW. WILL FOLLOW
--- NOTE | 2021-09-26 17:00 | NUR ---
Spoke with Umesh. 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 He sees Dr Taylor and will transfer to another provider in [facility] as has retired. He also see's Dr. Bingham at the [place]. He owns a walker and wc that belonged to his MIL. He denies needs and plans on returning to work in 2 weeks. Plans to dc to home with his .
--- NOTE | 2021-09-26 19:15 | NUR ---
BEDSIDE REPORT FROM QI COBB, PT RESTING IN BED, HE REPORTS NO PAIN AT THIS TIME. HE IS ALERT AND ORIENTED. NO DISTRESS NOTED.
--- NOTE | 2021-09-26 19:50 | NUR ---
CALLED PER PT REQUEST FOR HIS HOME INHALER. NEW ORDER TO BE PLACED. PT REPORTS HE USES IT ABOUT ONCE A MONTH FOR CONGESTION. PT IS NOT SHORT OF BREATH AT THIS TIME.
--- NOTE | 2021-09-26 21:24 | NUR ---
PT RESTING IN BED HE REPORTS INHALER HELPED WITH CONGESTION. HE FILLS RELATED TO ALLERGIES. PT ALERT AND ORIENTED, REPORTS NO PAIN AT THIS TIME.
--- NOTE | 2021-09-26 22:02 | NUR ---
NEW SCDS PLACED THE SET HE HAD WAS TOO LARGE, THE VELCRO WAS NOT CONNECTING.
--- NOTE | 2021-09-27 00:40 | NUR ---
PT RESTING IN BED EYES CLOSED RR EVEN AT 16 BPM, NO DISTRESS NOTED.
--- NOTE | 2021-09-27 02:03 | NUR ---
PT REPORTED HEAD ACHE, PT REPORTS HAS A LOT OF CAFFINE IN A DAY, TYLENOL PRN GIVEN AND ALSO GIVEN DILUTE CUP OF COFFEE AND BEEF BROTH. PATIENT ENJOYED VISITING ABOUT HIS LIFE AND FAMILY THEN REPORTED HIS HEAD ACHE WAS MUCH BETTER, HE ALSO REPORTS IT WAS NICE TO TALK A WHILE HE HAS BEEN FEELING DEPRESSED WITH THIS HOSPITAL STAY.
--- NOTE | 2021-09-27 03:05 | NUR ---
PT BACK TO BED FROM THE TOILET, SCDS BAKC IN PLACE, PT HAD A BM, NO FURTHER NEEDS AT THIS TIME
--- NOTE | 2021-09-27 03:52 | NUR ---
PT JUST CALLED TO USE BATHROOM, HAD SECOND BM, HE REPORT "A COUPLE OF DOTS ON THE TOILET PAPER WHEN I WIPED" IN REGARDS TO BLOOD, STOOL IS DIARRHEA WITH SOFT FORMED PARTS. STOOL IS DARK BROWN NO BLOOD NOTED IN STOOL.
--- NOTE | 2021-09-27 05:20 | NUR ---
PT HAS BEEN UP FREQUENTLY TO VOID, DRINKING LARGE QUANTITY OF WATER. HE REPORTED A SIGNIFICANT HEAD ACHE WAS GIVEN TYLENOL AND DILUTE CUP OF COFFE AND BEEF BROTH, THIS RESOLVED THE HEAD ACHE, HE REPORTS HE DRINKS COFFEE AND SODA FROM THE TIME HE GETS UP TO THE TIME HE GOES TO BED NORMALLY AT HOME. HE HAS HAD BM X2 WITH NO BLOOD IN STOOL. HE HAS BEEN CALLING TO USE BATHROOM REQUIRES HELP WITH SCDS, THEN INDEPENDENT WITH STEADY GAIT, NO DIZZINESS REPORTED. HE HAS BEEN MILDLY AXIOUS ABOUT HIS GI BLEED RESOLVING, HE ALSO REPORTS HE FEELS A LITTLE DEPRESSED ABOUT THIS LENGTHY HOSPITAL STAY. VISITED WITH PT FREQUENTLY HE REPORT THIS HAS HELPED.
--- NOTE | 2021-09-27 05:49 | NUR ---
pt reports he is feeling so much better this am, he reports he mind feels more clear, he feels stronger. lab in room to draw at this time.
--- NOTE | 2021-09-27 07:55 | NUR ---
PT IN A VERY CHATTY MOOD. PT ACCEPTED WARM CLOTH FOR FACE. WHITE BOARD UPDATED, CALL LIGHT WITHIN REACH. NO FURTHER NEEDS AT THIS TIME.
--- NOTE | 2021-09-27 09:10 | NUR ---
PT VERY CHATTY. PT ACCEPTED CHAIR. TIDIED ROOM. CALL LIGHT WITHIN REACH, NO FURTHER NEEDS AT THIS TIME. WILL RETURN SOON FOR I&O'S.
--- NOTE | 2021-09-27 09:20 | NUR ---
SPOKE WITH PATIENT IN ROOM. PATIENT IS ORIENTED. STATES HE FEELS MUCH BETTER AND STRONGER TODAY. IS AWARE DIET IS GOING TO BE ADVANCED. IS HOPING TO GO HOME LATER TODAY IF HE CAN TOLERATE FOOD AND HAS NOT FURTHER BLEEDING. DENIES NEEDS OR CONCERNS TO RETURN HOME. IS INDEPENDENT IN AMBULATION IN ROOM. CAN PROVIDE TRANSPORTATION HOME. DISCUSSED F/U APPT. HE STATES HE [facility]ALA IN THE NEXT WEEK OR SO. IF NOT, HE MAY GO THROUGH [facility]STE[facility]. DR SINGH THERE HAS BEEN HIS LOCAL PCP, BUT HAS RETIRED. HE WOULD FEEL OK SEEING ANOTHER PROVIDER THERE IF NEEDED. STATES HE IS GOING TO CALL [facility] OFFICE TO CHECK ON AVAILABILITY.
--- NOTE | 2021-09-27 09:49 | EKG ---
[facility] [address] [place] [address] Signed Sinus rhythm with premature supraventricular complexes and with occasional premature ventricular complexes and fusion complexes Left anterior fascicular block Abnormal ECG When compared with ECG of 23-SEP-2021 04:47, fusion complexes are now present premature ventricular complexes are now present premature supraventricular complexes are now present Confirmed by KISHA QUINTEROS MD ([id number]) on 09/27/2021 9:49:23 AM Electronically Signed By: KISHA QUINTEROS MD 09/27/21 0949 PATIENT NAME: SHANKAR GODFREY Electrocardiogram DATE OF : 38 PHYSICIAN: KISHA QUINTEROS MD REPORT #: [id number] REPORT IS CONFIDENTIAL AND NOT TO BE RELEASED WITHOUT AUTHORIZATION
--- NOTE | 2021-09-27 10:39 | NUR ---
REPORT RECEIVED FROM NIGHT RN AND PT. CARE RESUMED. PT. IS ALERT AND ORIENTED. APPEARS SOMEWHAT ANXIOUS ABOUT CBC LAB RESULTS. EDUCATED PT. ON LABS AND REASSURED. IV SITES WNL AND FLUSHED. BOWEL TONES ACTIVE. HE DENIES PAIN OR FEELING LIGHT HEADED. AMBULATING INDEPENDENTLY TO THE BATHROOM. DISCUSSED DIET, POC, AND MEDS. LEFT RESTING WITH CALL LIGHT IN REACH
[2021-09-27] MEDS ORDERED: CHOLESTYRAMINE P4 GM PO (10:40)
[2021-09-27] MEDS ORDERED: IPRATROPIUM BRO30 ML NAS (10:45)
--- NOTE | 2021-09-27 10:51 | NUR ---
PT ALERT, ORIENTED AND SITTING IN CHAIR VISITING WITH HIS . PT SAID HIS BLOOD WORK IS IMPROVING, FEELING BETTER TODAY.HOPES TO DC.GAVE ENCOURAGEMENT WILL FOLLOW
--- NOTE | 2021-09-27 11:20 | NUR ---
MED REC COMPLETED BY PHARMACY
--- NOTE | 2021-09-27 11:42 | NUR ---
ROUNDING ON PT. HE REPORTS HE IS FEELING WELL AND HAS NO PAIN. STATES HE HAS HAD A COUPLE SMALL BM THIS SHIFT AND HE DID NOT SEE ANY BLOOD. PT. ASKED TO CALL THIS NURSE NEXT BM. LEFT RESTING WITH AT BEDSIDE AND CALL LIGHT IN REACH.
--- NOTE | 2021-09-27 13:31 | NUR ---
PT SITTING ON EDGE OF BED, GOING OVER DISCHARGE INSTRUCTIONS WITH REZA BUSBY. CALL LIGHT WITHIN REACH, NO FURTHER NEEDS. PT INITALLY ACCEPTED SHOWER, BUT NOW IS REFUSING. REZA BUSBY AWARE.
--- NOTE | 2021-09-27 14:55 | NUR ---
ALL DISCHARGE INSTRUCTIONS REVIEWED AND QUESTIONS ANSWERED. VITALS STABLE AND PT. DENIES PAIN. 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
--- NOTE | 2021-09-30 15:25 | OR ---
[facility] [address], [place] [address] Signed DATE OF OPERATION: 09/25/2021 SURGEON: Rodríguez Campos MD PREOPERATIVE DIAGNOSIS: Recurrent severe hematochezia (symptomatic). POSTOPERATIVE DIAGNOSES: 1. No evidence of upper gastrointestinal bleeding. 2. Diverticulosis from his extensive including sigmoid and left colon. No sign of active bleeding. 3. No sign of bleeding from the ileum, though ileum not intubated. PROCEDURES: 1. Esophagogastroduodenoscopy. 2. Total colonoscopy to cecum. ANESTHESIA: Intravenous sedation, propofol infusion, Rosalina Winslow CRNA. INDICATIONS: This 81-year-old white man was admitted by Ruben Maier MD, on 09/23/2021 with hematochezia and hematocrit was about 30. He underwent a bowel prep on the morning of September 24, underwent colonoscopy by me where he was found to have extensive diverticular changes of sigmoid and left colon. No sign of bleeding, residual blood, active bleeding, or other problem. There is no evidence of colitis or polyp either. This bleeding was attributed to diverticular disease, though he did have hemorrhoids that were not clinically bleeding. He did have a regular diet following that, but late in the evening had an episode of significant hematochezia accompanied by hypotension and transient atrial fibrillation. He was markedly diaphoretic and had recurrent hematochezia and was transferred to the intensive care unit once again under the direction of Dr. Maier. Transfusion therapy was then initiated. My evaluation showed him to be hemodynamically stable at that point, but somewhat pale in appearance. His hematocrit was noted to be 27 prior to transfusion. Although, the patient has had no hematemesis or sign of upper gastrointestinal bleeding proper and his bleeding previously had been bright and attributed to colonic source. I have recommended emergency upper endoscopy to assess. There is no sign of profound Electronically Signed By: RODRÍGUEZ CAMPOS MD 09/30/21 1525 PATIENT NAME: SHANKAR GODFREY OPERATIVE REPORT DATE OF : 38 REPORT #: [id number] PHYSICIAN: RODRÍGUEZ CAMPOS MD PCP: JUAN AYALA MD REPORT IS CONFIDENTIAL AND NOT TO BE RELEASED WITHOUT AUTHORIZATION [facility] [address], [place] [address] Signed upper gastrointestinal lesion accounting for bleeding and if negative repeat colonoscopy to assess the site of bleeding from the colon could be identified. We acknowledge that the possibility of bleeding proximal to the ileocecal valve, but distal to the ligament of Treitz is a rare, but known possibility for occult bleeding. The patient and his understand the risks of the procedure including, but not limited to bleeding, infection, failure to identify the bleeding source, and other unforeseen complications and understand and wished him to proceed. FINDINGS: Upper endoscopy showed no lesion to account for bleeding. Colonoscopy was repeated. There was no sign of active bleeding. There was some semi-clotted blood in the sigmoid and left colon dominantly, less sign of stigmata of bleeding proximally. The ileocecal valve was identified, but egress of some solid food content through it was noted, which did not have blood staining and I think it unlikely the bleeding proximal to the ileocecal valve. I would still attribute his recent bleeding and rebleeding to a diverticular source. DESCRIPTION OF PROCEDURE: The patient was brought to the endoscopy suite and placed in lateral decubitus position, given intravenous sedation with propofol infusional technique. A bite block was placed. An Olympus video upper endoscope was passed by hypopharynx, vocal cords were normal. Scope was advanced to the esophagus. The stomach and duodenum showing no lesion to account for bleeding. No blood clot or other abnormality. Retroflexed view was normal as well. The scope was removed and plans made for colonoscopy. Digital examination was undertaken showing some bright and dark blood from recent hematochezia. Digital rectal examination was undertaken, which showed no lesion or solid formed stool. Olympus video colonoscope was passed in the rectum and manipulated throughout the colon with a fair amount of irrigation concurrently. There was some fresh clot and some bright, but nonactive bleeding blood areas in the sigmoid and left colon. The scope was passed ultimately beyond the splenic flexure and the transverse and right colon, and although not completely free of any stigmata of blood. There was no active bleeding, and I believe it is highly probable that his bleeding is from a left-sided source including sigmoid colon with diverticulosis. The scope was ultimately advanced to the cecum. Visualization was undertaken. There is egress of what appeared to be colon or other food products from his dinner this evening. Mindful that he had already been prepped for his colonoscopies in the past 24 hours. Attempts were made to intubate the ileum to assure there was no proximal bleeding, but it could not be undertaken due to egress of nonbloody enteric contents to the ileocecal valve. Irrigation was undertaken more fully and the scope was then carefully withdrawn examination undertaken. Meticulous care was taken in copious irrigation identifying scattered diverticula in the right and transverse side, but more dominant in left and Electronically Signed By: RODRÍGUEZ CAMPOS MD 09/30/21 1525 PATIENT NAME: SHANKAR GODFREY OPERATIVE REPORT DATE OF : 38 REPORT #: [id number] PHYSICIAN: RODRÍGUEZ CAMPOS MD PCP: JUAN AYALA MD REPORT IS CONFIDENTIAL AND NOT TO BE RELEASED WITHOUT AUTHORIZATION [facility] [address] [place], [place] [address] Signed sigmoid colonic bleeding. None of the diverticula examined, however, he had stigmata of ongoing bleeding and there was no evidence of other abnormality to account for hematochezia. The rectum showed internal hemorrhoids, but none bleeding. The scope was removed. The patient was then taken to recovery room in good condition. No evidence of upper gastrointestinal bleeding. Bleeding shows most likely sigmoid and left colon related to diverticula. No certainty of any blood proximal to the splenic flexure in fact. PLAN: He will return to the intensive care unit for further management, completion of transfusion therapy, and so on. If recurrent bleeding should be noted, consideration might be made , which is likely locally available. I would maintain a clear liquid diet for the time being. MD LATRICE Segovia/DEJAL /[id number] cc: Ruben Maier MD Copies: RUBEN MAIER MD ~ Electronically Signed By: RODRÍGUEZ CAMPOS MD 09/30/21 1525 PATIENT NAME: SHANKAR GODFREY OPERATIVE REPORT DATE OF : 38 REPORT #: [id number] PHYSICIAN: RODRÍGUEZ CAMPOS MD PCP: JUAN AYALA MD REPORT IS CONFIDENTIAL AND NOT TO BE RELEASED WITHOUT AUTHORIZATION
== END 2021-09-27 14:55 | disposition home or self-care (01) | DRG 378 ==
LOC: ED 04:14 → CCU 05:49 → MS 09-24 12:50 → CCU 09-24 23:35 → MS 09-26 12:30
PROVIDERS: Surgery; ADMIT Internal Medicine; ATTEND Internal Medicine
PROC: 0DJD8ZZ Inspection of Lower Intestinal Tract, Via Natural or Artificial Opening Endoscopic (ICD-10-PCS; 2021-09-24)
PROC: 30233R1 Transfusion of Nonautologous Platelets into Peripheral Vein, Percutaneous Approach (ICD-10-PCS; 2021-09-25)
PROC: 30233K1 Transfusion of Nonautologous Frozen Plasma into Peripheral Vein, Percutaneous Approach (ICD-10-PCS; 2021-09-25)
PROC: 0DJ08ZZ Inspection of Upper Intestinal Tract, Via Natural or Artificial Opening Endoscopic (ICD-10-PCS; 2021-09-25)
PROC: 0DJD8ZZ Inspection of Lower Intestinal Tract, Via Natural or Artificial Opening Endoscopic (ICD-10-PCS; 2021-09-25)
PROC: 30233L1 Transfusion of Nonautologous Fresh Plasma into Peripheral Vein, Percutaneous Approach (ICD-10-PCS; principal; 2021-09-25 00:30)
PROC: 30233N1 Transfusion of Nonautologous Red Blood Cells into Peripheral Vein, Percutaneous Approach (ICD-10-PCS; 2021-09-25 00:30)
DX: K57.31 Diverticulosis of large intestine without perforation or abscess with bleeding (principal); D62 Acute posthemorrhagic anemia; K21.9 Gastro-esophageal reflux disease without esophagitis; J45.909 Unspecified asthma, uncomplicated; I10 Essential (primary) hypertension; I25.10 Atherosclerotic heart disease of native coronary artery without angina pectoris; K64.8 Other hemorrhoids; Z20.822 Contact with and (suspected) exposure to COVID-19; Z96.659 Presence of unspecified artificial knee joint; E78.5 Hyperlipidemia, unspecified; Z90.49 Acquired absence of other specified parts of digestive tract; Z98.890 Other specified postprocedural states; Z88.1 Allergy status to other antibiotic agents; Z79.51 Long term (current) use of inhaled steroids; Z79.899 Other long term (current) drug therapy; Z79.82 Long term (current) use of aspirin; Z79.1 Long term (current) use of non-steroidal anti-inflammatories (NSAID)
CPT/HCPCS: 36430; 80048; 80053; 85014; 85018; 85025; 85610; 85730; 86850; 86900; 86901; 86922; 90694; 93005; 93010; 94640; 94664; 96374; 99285-25; C9113; C9803; G0008; J0171; J0690; J2001; J2405; J2704; J7030; J7121; P9059; U0003

== ENCOUNTER 2022-03-15 11:45 | Emergency (ER) | payer OTHER, MEDICARE ==
[~2022-03-15] VITALS: Ht 175.3 cm; Wt 87.5 kg
[~2022-03-15 11:45] MED LIST changes: +ARNUITY ELLIPT50 MCG; +CHOLESTYRAMINE P4 GM PO; +DILTIAZEM ER300 M1 PO; +FLUOCINOLONE AC15 G2 TOP; +IPRATROPIUM BRO30 ML NAS; +LIPITOR80 MG PO; +MELOXICAM15 MG PO; +OMEPRAZOLE20 MG PO; +TRIAMCINOLONE A15 G1 TOP; +VAZALORE81 MG PO
[2022-03-15] MEDS ORDERED: ZESTRIL20 MG (12:33)
[2022-03-15] MEDS ORDERED: TAZTIA XT360 MG PO (12:34)
[2022-03-15] MEDS ORDERED: MELOXICAM15 MG PO (12:35)
[2022-03-15] MEDS ORDERED: FLUTICASONE PRO16 GM NAS (12:35)
[2022-03-15] MEDS ORDERED: ASPIRIN81 MG PO (12:36)
[2022-03-15] MEDS ORDERED: HYDROCODON-ACE1 EA10 PO (15:08)
== END 2022-03-15 15:27 | disposition home or self-care (01) ==
LOC: ED 11:45
DX: S22.42XA Multiple fractures of ribs, left side, initial encounter for closed fracture (principal); S02.2XXA Fracture of nasal bones, initial encounter for closed fracture; E78.00 Pure hypercholesterolemia, unspecified; K21.9 Gastro-esophageal reflux disease without esophagitis; J45.909 Unspecified asthma, uncomplicated; I10 Essential (primary) hypertension; I25.10 Atherosclerotic heart disease of native coronary artery without angina pectoris; Z88.1 Allergy status to other antibiotic agents; Z79.899 Other long term (current) drug therapy; Z79.82 Long term (current) use of aspirin; W01.0XXA Fall on same level from slipping, tripping and stumbling without subsequent striking against object, initial encounter
CPT/HCPCS: 36415; 70486; 71250; 73080; 73560; 80048; 85025; 85610; 99284-25

== ENCOUNTER 2022-04-15 07:52 | Emergency (ER) | payer MEDICARE, OTHER ==
[~2022-04-15] VITALS: Ht 175.3 cm; Wt 87.5 kg
[~2022-04-15 07:52] MED LIST changes: +ASPIRIN81 MG PO; +FLUTICASONE PRO16 GM NAS; +HYDROCODON-ACE1 EA10 PO; +ZESTRIL20 MG
[2022-04-15] MEDS ORDERED: FERROUS GLUCON324 M1 PO (08:31)
[2022-04-15] MEDS ORDERED: LIDODERM1 EACH TD (09:05)
[2022-04-15] MEDS ORDERED: NAPROSYN500 MG PO (09:05)
--- NOTE | 2022-04-15 13:40 | EKG ---
[facility] [address] [place] [address] Signed Sinus rhythm with occasional premature ventricular complexes and premature atrial complexes Left axis deviation Nonspecific intraventricular block Minimal voltage criteria for LVH, may be normal variant ( Jered product ) Abnormal ECG When compared with ECG of 24-SEP-2021 23:27, fusion complexes are no longer present QRS duration has increased Confirmed by KISHA QUINTEROS MD ([id number]) on 04/15/2022 1:40:31 PM Electronically Signed By: KISHA QUINTEROS MD 04/15/22 1340 PATIENT NAME: SHANKAR GODFREY Electrocardiogram DATE OF : 38 PHYSICIAN: KISHA QUINTEROS MD REPORT #: [id number] REPORT IS CONFIDENTIAL AND NOT TO BE RELEASED WITHOUT AUTHORIZATION
== END 2022-04-15 09:18 | disposition home or self-care (01) ==
LOC: ED 07:52
DX: R07.89 Other chest pain (principal); S22.42XD Multiple fractures of ribs, left side, subsequent encounter for fracture with routine healing; E78.00 Pure hypercholesterolemia, unspecified; K21.9 Gastro-esophageal reflux disease without esophagitis; J45.909 Unspecified asthma, uncomplicated; I10 Essential (primary) hypertension; I25.10 Atherosclerotic heart disease of native coronary artery without angina pectoris; Z88.1 Allergy status to other antibiotic agents; Z79.899 Other long term (current) drug therapy; Z79.82 Long term (current) use of aspirin
CPT/HCPCS: 71046; 93005; 93010; 96374; 99285-25; J1885

== ENCOUNTER 2022-08-28 22:43 | Emergency (ER) | payer OTHER, MEDICARE ==
[~2022-08-28] VITALS: Ht 175.3 cm; Wt 87.1 kg
[~2022-08-28 22:43] MED LIST changes: +FERROUS GLUCON324 M1 PO; +LIDODERM1 EACH TD; +NAPROSYN500 MG PO
== END 2022-08-28 23:52 | disposition home or self-care (01) ==
LOC: ED 22:43
DX: M96.830 Postprocedural hemorrhage of a musculoskeletal structure following a musculoskeletal system procedure (principal); Y83.8 Other surgical procedures as the cause of abnormal reaction of the patient, or of later complication, without mention of misadventure at the time of the procedure; I10 Essential (primary) hypertension; I25.10 Atherosclerotic heart disease of native coronary artery without angina pectoris; J45.909 Unspecified asthma, uncomplicated; Z88.1 Allergy status to other antibiotic agents; Z79.899 Other long term (current) drug therapy; Z79.82 Long term (current) use of aspirin

== ENCOUNTER 2023-04-06 23:22 | Emergency (ER) | payer OTHER, MEDICARE ==
[~2023-04-06] VITALS: Ht 175.3 cm; Wt 89.8 kg
[2023-04-07 03:41] VITALS: BP 173/95
== END 2023-04-07 03:10 | disposition home or self-care (01) ==
LOC: ED 23:22
DX: S00.83XA Contusion of other part of head, initial encounter (principal); S80.02XA Contusion of left knee, initial encounter; S80.01XA Contusion of right knee, initial encounter; S60.212A Contusion of left wrist, initial encounter; S60.211A Contusion of right wrist, initial encounter; S00.31XA Abrasion of nose, initial encounter; W18.30XA Fall on same level, unspecified, initial encounter; E78.00 Pure hypercholesterolemia, unspecified; K21.9 Gastro-esophageal reflux disease without esophagitis; J45.909 Unspecified asthma, uncomplicated; I10 Essential (primary) hypertension; Z88.1 Allergy status to other antibiotic agents; Z79.899 Other long term (current) drug therapy; Z79.82 Long term (current) use of aspirin
CPT/HCPCS: 70450; 70486; 71101; 72125; 73080; 73110; 73560; 96374; 96375; 99284-25; A9270; J2405; J3010

== ENCOUNTER 2025-08-18 10:03 | Emergency (ER) | payer OTHER ==
[~2025-08-18] VITALS: Ht 175.3 cm; Wt 79.9 kg
[2025-08-18 14:05] VITALS: BP 127/89
== END 2025-08-18 14:06 | disposition left against medical advice (07) ==
LOC: ED 10:03
DX: Z53.21 Procedure and treatment not carried out due to patient leaving prior to being seen by health care provider (principal)